=== PATIENT | male | born 1955 | race Caucasian/White ===

== ENCOUNTER 2016-09-08 02:59 | Inpatient (IN) | payer OTHER ==
--- NOTE | ~2016-09-08 | OR ---
Unit #: [id number] #: [id number] Patient: STEF BALLARD [id number] [address] [address] [id number] MR#: [id number] NAME: STEF BALLARD. ROOM: 568 Date of Procedure: 09/09/2016 Admission Date: 09/08/2016 Surgeon: Joseph Erickson M.D. : 1955 Attending Physician: Cal Flores M.D. Primary Care Physician: Alejandra Wu Aprn OPERATIVE REPORT PREOPERATIVE DIAGNOSES Possible upper gastrointestinal bleed. The patient has history of hepatitis C and melena. PROCEDURES PERFORMED Upper gastrointestinal endoscopy and biopsy. 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 Otherwise, examination was normal up to third part of duodenum. Specifically, no esophageal varices nor any changes of portal hypertensive gastropathy were seen. No specific area of potential gastrointestinal blood loss was noted in the entire upper gastrointestinal tract. RECOMMENDATIONS Consider colonoscopy as an outpatient. Also follow up the results of the biopsies taken today. SEDATION USED MAC. DESCRIPTION OF PROCEDURE Following detailed explanation of the potential risks and complications of an upper endoscopy, namely perforation, bleeding, and complication related to sedation, the patient was brought to GI lab and laid in the left lateral decubitus position. Lubricated tip of the Olympus video upper endoscope was passed through the bite block into the proximal esophagus under direct vision. 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 The Zabala segment was at least 2.5 to 3 cm in length. No esophagitis or stricture was present. The scope was then advanced into the gastric cavity and the latter was insufflated. Mucosa of the fundus, body, and antrum was examined and appeared unremarkable. Pylorus was intubated with visualization of the normal duodenal bulb and second and third part of the duodenum. Upon withdrawal and retroflexion, incisura, cardia, and greater curve was examined and no additional findings were noted. The scope was then withdrawn in the distal esophagus. Multiple biopsies were obtained from the Zabala segment and sent for histology. Entire esophageal mucosa was examined all the way up to pharynx. No additional findings were noted. The patient tolerated the procedure without any postprocedure complications. Unit #: [id number] #: [id number] Patient: STEF BALLARD Dictated by... Sam Johnson/prashanth TD: 09/10/2016 06:09 JOB #: [id number] CC: Kapil Colón M.D. OPERATIVE REPORT Page 1 of 1 X Joseph Erickson MD X PROCEDURE OPERATIVE NOTE
--- NOTE | ~2016-09-08 | CT4 ---
[facility] A Service of [facility] RADIOLOGY TEXT RESULTS PATIENT: STEF BALLARD LOCATION: [facility] 568-01 : 59 UNIT #: [id number] AGE: [address]: Fabián Ramirez MD SEX: M ORDER DR: [id number] [facility] [address] [facility]. [place], [place] [address] [id number] I MR#: [id number] Acc #: [id number] NAME: STEF BALLARD. : 1955 SEX: M STUDY DATE/TIME: 09/08/2016 4:38 UNIT: [facility] ROOM: 578 STUDY DESCRIPTION: CT Abd and Pelv Wo Cont Attending Physician: Fabián Back M.D. Referring Physician: Clara Self Referred Ordering Physician: Tom Guillaume Aprn Primary Care Physician: Alejandra Wu Aprn MEDICAL IMAGING REPORT This report is preliminary unless electronic signature is present EXAM Abdomen and pelvis CT, no contrast. INDICATION 61-year-old male with abdominal pain, bloating, nausea, vomiting, and diarrhea for 2 days. History of appendectomy. TECHNIQUE Noncontrast abdomen and pelvis CT was performed. This CT exam was performed with one or more of the following radiation dose reduction techniques: automatic exposure control, adjustment of mA and/or kV according to patient size, and iterative reconstruction. COMPARISON 11/14/[address] ABDOMEN: Exam markedly degraded by noncontrast technique. There is pleural thickening in the left lung base. Atelectasis in the right lower lobe. No effusion or pericardial effusion. Aorta demonstrates atherosclerotic change. No aneurysm. There is motion degradation. Spleen, adrenal glands, and pancreas and gallbladder unremarkable. Liver unremarkable. Kidneys demonstrate no hydronephrosis or radiopaque stone on either side. Ureters unremarkable. There is a benign cyst in the lower pole left kidney measuring about 4.[address] PELVIS: Bladder unremarkable. Prostate within normal limits. No drainable fluid collection in the pelvis. There is diverticulosis of the colon. No CT evidence of diverticulitis. Appendix surgically absent by history. Bowel demonstrates no inflammatory change or obstruction. Nonspecific fluid-filled small bowel loops in the left mid abdomen and STS. [facility] A Service of [facility] RADIOLOGY TEXT RESULTS PATIENT: STEF BALLARD LOCATION: [facility] 568-01 : 59 UNIT #: [id number] AGE: [address]: Fabián Ramirez MD SEX: M ORDER DR: upper quadrant. Inguinal canals are unremarkable. There are degenerative changes in the thoracolumbar spine. IMPRESSION 1. There are some fluid-filled loops of small bowel in the left midabdomen and left upper quadrant. This is nonspecific and may reflect a mild ileus. 2. The examination otherwise demonstrates no acute finding. No bowel obstruction, drainable fluid collection, or radiopaque stone associated with either kidney. Incidental cyst in the left kidney. 3. Diverticulosis. 4. Surgical absence of the appendix. Dictated by... Anthony Soto M.D. THIS IS AN ELECTRONICALLY VERIFIED REPORT Anthony Soto M.D. at 09/08/2016 9:57 PM Tunde TD: 09/08/2016 15:24 JOB #: [id number] MEDICAL IMAGING REPORT Page 1 of 1 COPY
--- NOTE | ~2016-09-08 | CO ---
Unit #: [id number] #: [id number] Patient: STEF CORONA [id number] [address] [place], [place] [address] [id number] Lisa MR#: [id number] NAME: STEF CORONA. ROOM: 568 Age: 61 Sex: M Admission Date: 09/08/2016 : 1955 Attending Physician: Cal Flores M.D. Primary Care Physician: Alejandra Wu Aprn Consultation Date: 09/09/2016 CONSULTATION REPORT PRIMARY CARE PHYSICIAN Alejandra Wu APRN. REASON FOR CONSULTATION Melena and abdominal pain. HISTORY OF PRESENT ILLNESS Mr. Corona is a 61-year-old white gentleman with a history of nausea, vomiting, diarrhea subsequently followed by melena and abdominal pain. I have been asked to assess for cause of possible upper GI bleed. In fact, the patient presented with low back pain and abdominal pain, which was fairly in the epigastric area and right upper quadrant of the abdomen. Subsequently, he also had some nausea, vomiting, and watery nonbloody diarrhea; later on, it became black and tarry. He was also feeling very weak and having some rigors. He apparently had a colonoscopy about a year ago that showed diverticulosis. PAST MEDICAL HISTORY Significant for history of hepatitis C, peripheral neuropathy, chronic back pain, degenerative disk disease, hypertension. PAST SURGICAL HISTORY Included cervical spinal surgery and appendectomy. HOME MEDICATIONS Include gabapentin, albuterol, lisinopril, meloxicam, Flexeril, omeprazole, hydrocodone, and acetaminophen. ALLERGIES He has no known drug allergies. FAMILY HISTORY Significant for premature heart disease in parents and uncles. SOCIAL HISTORY He lives at home with his . Smokes a pack of cigarettes a day and drinks a case of beer of 24 every other weekend. He also has used crack cocaine 3 days ago. He uses marijuana for a long time. REVIEW OF SYSTEMS Detailed review of organ systems does not reveal any recent weight loss. No history of fever, chills, or rigors. No history of headache, seizure, chest pain, or syncope. No history of cough, expectoration, or Unit #: [id number] #: [id number] Patient: STEF CORONA hemoptysis. No history of dysuria, hematuria, or pyuria. No history of focal seizures or extremity weakness. History of nausea, vomiting, diarrhea as mentioned above. There is also possibly a history of melena. PHYSICAL EXAMINATION GENERAL: He is alert and oriented, appears comfortable. VITAL SIGNS: Stable with a temperature of 98.6, pulse 93 per minute and regular, respiratory rate is 18, blood pressure is 116/53. He weighs 144 pounds. Baseline weight has been much more about 160 pounds in the past. HEENT: He has mild pallor. There being no icterus, lymphadenopathy, or peripheral edema. CARDIOVASCULAR: Normal heart sounds. No murmurs on auscultation. LUNGS: Reveal normal breath sounds. Good air entry. ABDOMEN: Soft and nontender. Liver and spleen are not palpable. Bowel sounds normal. DIAGNOSTIC STUDIES LABORATORY RESULTS: His hemoglobin of 12, baseline hemoglobin upon admission was 16. BUN and creatinine of 56 and 3.4. CLINICAL IMPRESSION The patient with upper gastrointestinal bleed, acute kidney injury, hepatitis C, anemia with gastrointestinal blood loss. MANAGEMENT PLAN An upper endoscopy will be performed later today. Based upon the results, we will let any further evaluation be made. The pros and cons of procedure, potential risks, and complications were discussed with the patient and he was reassured. Thank you for asking me to see this pleasant gentleman. I appreciate the consult. Dictated by... Sam Johnson/prashanth TD: 09/11/2016 01:05 JOB #: [id number] CC: Kapil Colón M.D. CONSULTATION REPORT Page 1 of 1 X Joseph Erickson MD CONSULTATION REPORT
--- NOTE | ~2016-09-08 | EKG ---
PATIENT: STEF BALLARD UNIT #: [id number] Ventricular Rate: 93 BPM Atrial Rate: 93 BPM P-R Interval: 148 ms QRS Duration: 80 ms Q-T Interval: 328 ms QTC Calculation(Bezet): 407 ms P [place]: 71 degrees Calculated R [place]: 59 degrees Calculated T [place]: 29 degrees Diagnosis Line: Normal sinus rhythm Diagnosis Line: Normal ECG Diagnosis Line: When compared with ECG of 13-NOV-2015 23:05, Diagnosis Line: No significant change was found Diagnosis Line: Confirmed by TRUPTI SINGH MD ([id number]) on 09/09/2016 Diagnosis Line: 10:58:14 PM INTERPRETING MD: SAMANTHA ROCK
--- NOTE | ~2016-09-08 | HP ---
Unit #: [id number] #: [id number] Patient: STEF CORONA [id number] [address] [address] [id number] I MR#: [id number] NAME: STEF CORONA. ROOM: 578 Age: 61 Sex: M Admission Date: 09/08/2016 : 1955 Attending Physician: Fabián Back M.D. Primary Care Physician: Alejandra Wu Aprn HISTORY AND PHYSICAL CHIEF COMPLAINT/REASON FOR ADMISSION Abdominal pain and blood in the stools. HISTORY OF PRESENT ILLNESS Mr. Corona is a 61-year-old male with a history of chronic low back pain and hepatitis C who presented to the emergency room because of one day of severe abdominal pain that he describes as a sharp pain in the epigastrium and left upper quadrant of severe intensity and nonradiating, associated with nausea and vomiting of approximately three to four times with subsequent dry heaving and also diarrhea that was initially clear and later became with what he describes as dark blood. He had approximately four episodes of diarrhea since yesterday evening. The patient denies any blood in the vomit. The patient's called EMS, and the patient was brought to the emergency room. By that time, the patient was feeling very weak and had shaking chills according to him. No fever. No sick contacts. The patient describes a similar episode a couple of times in the past with the latest one being in 2015 when the symptoms were related to diverticulosis and infectious gastroenteritis. The patient has followed with Dr. Hewitt in the outpatient setting but never underwent EGD even though this was planned. He did have a colonoscopy approximately one year ago that showed just diverticulosis. PAST MEDICAL HISTORY 1. Hepatitis C. 2. Peripheral neuropathy. 3. Chronic back pain. 4. Degenerative disk disease. 5. Hypertension. 6. Cervical spine surgery. 7. Patient states he had a colonoscopy last year. However, according to medical records, his last colonoscopy was in May 2009 and showed diverticulosis and two small polyps. 8. Appendectomy. CURRENT MEDICATIONS 1. Hydrocodone and acetaminophen 10 mg approximately 3 tablets daily. 2. Omeprazole 1 tablet p.o. daily. 3. Flexeril. 4. Meloxicam 15 mg daily. 5. Gabapentin 300 mg 3 times daily. 6. Albuterol inhaler p.r.n. 7. Lisinopril 10 mg daily. ALLERGIES Unit #: [id number] #: [id number] Patient: STEF CORONA No known drug allergies. FAMILY HISTORY Heart disease in his father and paternal uncles at age younger than 45. SOCIAL HISTORY The patient lives with his . He has three grown kids. He smokes approximately one pack a day. Denies drinking alcohol. Acknowledges using crack on occasion with last use approximately three days ago. He used cocaine and marijuana in the past but not for years now according to him. REVIEW OF SYSTEMS Significant for abdominal pain, nausea, vomiting, diarrhea, and blood in stools, as well as lightheadedness and chills as detailed in the History of Present Illness. Otherwise, a 12-point review of systems was negative. PHYSICAL EXAMINATION VITAL SIGNS: On arrival to emergency room: Temperature 97.3, heart rate 109, blood pressure 108/56, respiratory rate 20, and pulse oximetry 98% on room air. Most recent vital signs: Temperature of 98.1, heart rate 98, respiratory rate 20, and blood pressure 99/60. GENERAL APPEARANCE: He is a well-developed male who looks in some mild to moderate distress because of abdominal pain. HEENT: Pupils are equal and reactive to light and accommodation. Conjunctivae are pinkish. Moist mucous membranes. No oral lesions. NECK: Supple. No lymphadenopathy. CHEST: Clear to auscultation bilaterally. CARDIOVASCULAR: Regular rate and rhythm. No murmurs, rubs, or gallops. ABDOMEN: Bowel sounds are decreased throughout. There is tenderness to palpation with some guarding in the left upper quadrant and in the epigastric area. No rebound. EXTREMITIES: No edema. NEUROLOGIC: He is awake, alert, and oriented x3. Cranial nerves II-XII are grossly intact. DIAGNOSTIC STUDIES LABORATORY: WBC count 18.3, hemoglobin 16.2, and platelet count 354,000. Sodium 133, chloride 99, CO2 of 20, potassium 4.2, glucose 147, BUN 56, creatinine 3.4, and calcium 9.1. Liver panel is within normal limits except for a total bilirubin of 1.8 with direct of 0.2 and indirect of 1.6. Amylase and lipase are normal with lipase of 38 and amylase of 33. IMAGING: CT scan of the abdomen and pelvis without contrast showed dilated loops of small bowel in the left upper quadrant that is nonspecific but suggestive of ileus. No obstruction noted. Cyst noted in the left kidney. ASSESSMENT AND PLAN Mr. Corona is a 61-year-old male with a history of hepatitis C and chronic back pain with previous episodes of gastrointestinal bleed and diarrhea, now with another episode like this. 1. Nausea, vomiting, and abdominal pain. This is likely related to an acute enteritis. Etiology of this is not clear but is less likely to be infectious as the pattern seems to be recurrent. The patient also has some dysphagia and will likely need EGD. Will keep the patient n.p.o. and consult Gastroenterology. The patient has already received some IV fluids in the emergency room, and we will go ahead Unit #: [id number] #: [id number] Patient: STEF CORONA and rechallenge him with fluids again. Will obtain lactic acid. 2. Gastrointestinal bleed as above. It is unclear if the patient has bleeding from the upper or lower tract. There is inflammation noted in the small bowel loops in the left upper quadrant in an area that seems distal to the angle of [place]. He does describe dark stools but not melena. Will keep n.p.o., check a coagulation panel, and obtain stool studies. Will monitor his hemoglobin and hematocrit and transfuse if necessary for a hemoglobin threshold of less than 70 if there is no hemodynamic instability. 3. Acute kidney injury. In the past, his presentation was similar, and he responded to IV fluids. Will check urine studies including urine electrolytes and go ahead and challenge him with IV fluids generously. Will monitor his creatinine in the morning. At this time, his platelet count is normal. His hemoglobin is as well. No concern at this time about thrombotic microangiopathy. 4. History of substance abuse. Will obtain a urine drug screen. 5. Tobacco abuse. Counseled to quit. 6. Deep venous thrombosis prophylaxis. Will keep him on sequential compression devices. 7. Will manage the patient's symptoms with morphine and Zofran. The patient has been started on a Protonix drip in the emergency room. Will continue this until Gastroenterology evaluates the patient. 1. Dictated by Sam Us TD: 09/08/2016 17:20 JOB #: [id number] HISTORY AND PHYSICAL Page 1 of 1 X X HISTORY AND PHYSICAL
[~2016-09-08 02:59] MED LIST: FLAGYL PO; FLEXERIL10 MG PO; FOLIC ACID PO; GABAPENTIN300 M2 PO; HYDROCODON-ACE1 EAC5 PO; KEFLEX PO; LEVAQUIN PO; LISINOPRIL10 MG PO; LORCET PLUS TAB1 TA1; LORTAB 7.5-5001 TAB PO; MELOXICAM15 MG PO; NICOTINE T1 PATCH .2 TOP; NORCO 5/325 TAB1 TAB PO; OMEPRAZOLE20 M2 PO; PROTONIX PO; THIAMINE HCL100 MG PO
[2016-09-08 03:03] LABS: BASOPHIL% 0.1 % (0-2.5); DIFF IND YES; EOSINOPHIL# 0.1 X10e3 (0-0.7); EOSINOPHIL% 0.8 % (0.0-7.0); HEMOGLOBIN 16.2 gm/dL (13.0-16.0); LYMPHOCYTE# 0.5 X10e3 (1.0-3.5); LYMPHOCYTE% 2.5 % (17.0-45.0); MEAN CELL VOLUME 90.9 FL (83-96); MEAN PLATELET VOLUME 7.7 FL (6.5-11.5); MONOCYTE# 1.2 X10e3 (0-1.0); MONOCYTE% 6.8 % (3.0-12.0); NEUTROPHIL# 16.4 X10e3 (1.5-7.1); NEUTROPHIL% 89.8 % (40-75); PLATELET COUNT 354 X10e3 (140-420); RED BLOOD COUNT 5.39 X10e (3.90-5.60); RED CELL DISTRIBUTION WIDTH 13.5 % (11.0-15.5); WHITE BLOOD COUNT 18.3 X10e3 (4.0-10.5)
[2016-09-08] MEDS ORDERED: HYDROCODONE-APA1 T54 PO (03:24)
[2016-09-08 03:40] LABS: PLATELET ESTIMATE INCREASED (NORMAL)
[2016-09-08 03:41] LABS: ANISOCYTOSIS SL
[2016-09-08 03:50] LABS: ALBUMIN SERUM 4.7 g/dL (3.5-5.0); BILIRUBIN, DIRECT 0.2 mg/dL (0.0-0.2); BILIRUBIN,INDIRECT 1.6 mg/dL (0.0-0.9); BILIRUBIN,TOTAL 1.8 mg/dL (0.2-2.0); BUN/CREATININE RATIO 16.47; CALCIUM SERUM 9.1 mg/dL (8.4-10.2); CREATININE SERUM 3.4 mg/dL (0.6-1.4); GLOM FILT RATE Estimated 18.7 mL/min (>60); POTASSIUM 4.2 mmol/L (3.5-5.1); PROTEIN TOTAL SERUM 8.2 g/dL (6.0-8.3)
[2016-09-08 10:25] LABS: HEMATOCRIT 45.6 % (38.0-50.0)
[2016-09-08 11:46] LABS: PARTIAL THROMBOPLASTIN TIME 27.3 SECONDS (23.5-31.3); PROTHROMBIN TIME (PATIENT) 10.8 SECONDS (9.6-11.5)
[2016-09-08 14:53] LABS: HEMATOCRIT 43.4 % (38.0-50.0); HEMOGLOBIN 14.1 gm/dL (13.0-16.0)
[2016-09-08 22:32] LABS: HEMATOCRIT 37.3 % (38.0-50.0); HEMOGLOBIN 12.4 gm/dL (13.0-16.0)
[2016-09-09 03:27] LABS: URINE APPEARANCE CLEAR; URINE BILIRUBIN NEG (NEG); URINE BLOOD NEG (NEG); URINE COLOR YELLOW; URINE GLUCOSE NEG (NEG); URINE KETONE NEG (NEG); URINE LEUKOCYTE ESTERASE NEG (NEG); URINE NITRATE NEG (NEG); URINE PH 5.5 (5-8); URINE PROTEIN NEG (NEG); URINE SPECIFIC GRAVITY 1.019 (1.003-1.035); URINE UROBILINOGEN 0.2 MG/DL (NEG)
[2016-09-09 03:59] LABS: AMPHETAMINE POS (NEG); BARBITURATES NEG (NEG); BENZODIAZEPINES NEG (NEG); COCAINE NEG (NEG); MARIJUANA NEG (NEG); OPIATES POS (NEG); TRICYCLIC ANTIDEPRESSANTS POS (NEG); U METHADONE NEG (NEG)
[2016-09-09 04:00] LABS: CREATININE,RANDOM URINE 108 mg/dL; POTASSIUM,URINE RANDOM 25 mmol/L; SODIUM URINE RANDOM 87 mmol/L; TOTAL PROTEIN,RANDOM URINE 17 mg/dl (<10)
[2016-09-09 04:26] LABS: OSMOLALITY,URINE 612 mOsmo/kg (250-900)
[2016-09-09 08:26] LABS: HEMATOCRIT 37.7 % (38.0-50.0); HEMOGLOBIN 12.6 gm/dL (13.0-16.0); MEAN CELL VOLUME 90.8 FL (83-96); MEAN CORPUSCULAR HEMOGLOBIN 30.3 PG (28-34); MEAN CORPUSCULAR HGB CONC 33.3 g/dL (30-36); RED BLOOD COUNT 4.15 X10e (3.90-5.60); RED CELL DISTRIBUTION WIDTH 13.7 % (11.0-15.5); WHITE BLOOD COUNT 9.2 X10e3 (4.0-10.5)
[2016-09-09 08:48] LABS: ALBUMIN SERUM 3.3 g/dL (3.5-5.0); BUN/CREATININE RATIO 32.85; CALCIUM SERUM 8.5 mg/dL (8.4-10.2); CREATININE SERUM 1.4 mg/dL (0.6-1.4); GLOM FILT RATE Estimated 54.6 mL/min (>60); MAGNESIUM 1.9 mg/dL (1.6-3.0); PHOSPHOROUS 2.5 mg/dL (2.5-4.6); PROTEIN TOTAL SERUM 6.2 g/dL (6.0-8.3)
[2016-09-09 14:04] LABS: HEMATOCRIT 39.6 % (38.0-50.0); HEMOGLOBIN 12.9 gm/dL (13.0-16.0); MEAN CELL VOLUME 91.1 FL (83-96); MEAN CORPUSCULAR HEMOGLOBIN 29.7 PG (28-34); MEAN CORPUSCULAR HGB CONC 32.6 g/dL (30-36); MEAN PLATELET VOLUME 8.1 FL (6.5-11.5); RED BLOOD COUNT 4.34 X10e (3.90-5.60); RED CELL DISTRIBUTION WIDTH 13.8 % (11.0-15.5); WHITE BLOOD COUNT 8.4 X10e3 (4.0-10.5)
[2016-09-09] MEDS ORDERED: NICOTINE P1 PATCH .2 (18:12)
== END 2016-09-09 20:16 | disposition home or self-care (01) | DRG 378 ==
LOC: CED 02:59 → CEDOF 05:50 → C5C 08:11
PROVIDERS: Internal Medicine; Internal Medicine Gastroenterology; Nurse Practitioner Family
PROC: 0DB68ZX Excision of Stomach, Via Natural or Artificial Opening Endoscopic, Diagnostic (ICD-10-PCS; principal; 2016-09-09 09:50)
DX: K92.1 Melena (principal); N17.9 Acute kidney failure, unspecified; G62.9 Polyneuropathy, unspecified; D62 Acute posthemorrhagic anemia; B19.20 Unspecified viral hepatitis C without hepatic coma; K22.70 Barrett's esophagus without dysplasia; M54.9 Dorsalgia, unspecified; G89.29 Other chronic pain; I10 Essential (primary) hypertension; F17.210 Nicotine dependence, cigarettes, uncomplicated; F19.10 Other psychoactive substance abuse, uncomplicated
CPT/HCPCS: 36415; 74176; 80048; 80053; 80076; 80307; 81003; 82150; 82310; 82436; 82570; 83605; 83690; 83735; 83930; 83935; 84100; 84133; 84156; 84300; 85014; 85018; 85025; 85027; 85610; 85730; 87086; 88305; 93005; 96365; 96366; 96374; 96375; 99285; C9113; J1170; J2405

== ENCOUNTER → 2017-02-28 | Day surgery (SDC) | payer OTHER ==
[~2017-02-28] MED LIST changes: +HYDROCODONE-APA1 T54 PO; +NICOTINE P1 PATCH .2
--- NOTE | ~2017-02-28 | OR ---
Unit #: [id number] #: [id number] Patient: STEF BALLARD [id number] [address] [address] [id number] MR#: [id number] NAME: STEF BALLARD. ROOM: Date of Procedure: 02/28/2017 Admission Date: 02/28/2017 Surgeon: Joseph Erickson M.D. : 1955 Attending Physician: Joseph Erickson M.D. Primary Care Physician: Alejandra Wu Aprn OPERATIVE REPORT PRIMARY CARE PHYSICIAN Alejandra Wu APRN. PREOPERATIVE DIAGNOSES The patient presented for surveillance colonoscopy. He has personal history of colon polyps. PROCEDURES PERFORMED Colonoscopy and biopsy. POSTOPERATIVE DIAGNOSES 1. Single diminutive polyp in the sigmoid colon removed using cold biopsy forceps. 2. Sigmoid and descending colon diverticulosis. 3. Rest of the examination up to cecum was normal. The quality of the prep was good. RECOMMENDATIONS 1. Follow up the results of polyp histology. 2. Consider repeat colonoscopy in 5 years. SEDATION USED MAC. DESCRIPTION OF PROCEDURE Following detailed explanation of the potential risks and complications of a colonoscopy, namely perforation, bleeding, and complications related to sedation, the patient was brought to GI lab and laid in the left lateral decubitus position. A digital rectal examination was performed. The latter revealed presence of perianal skin tags. A lubricated tip of the Olympus video colonoscope was inserted through the anus and advanced under direct vision. The scope was advanced past rectosigmoid into descending colon. Multiple medium-sized diverticula were seen in this area. The scope tip was then navigated all the way up to cecum with visualization of the ileocecal valve and the appendiceal orifice. Preparation was good with good visualization and photodocumentation was obtained. Successive segments of the colonic mucosa were examined upon withdrawal. A single diminutive sessile polyp was noted in the mid sigmoid colon. This was removed using cold biopsy forceps. No additional polyps were seen. Other than the left-sided diverticula, no other abnormalities were found. The scope was then withdrawn and the patient returned to the recovery area. He tolerated the procedure without any postprocedure complications. Unit #: [id number] #: [id number] Patient: STEF BALLARD Dictated by... Sam Johnson TD: 02/28/2017 11:10 JOB #: [id number] OPERATIVE REPORT Page 1 of 1 X Joseph Erickson MD X PROCEDURE OPERATIVE NOTE
== END | disposition home or self-care (01) ==
LOC: COPS 07:39
DX: Z12.11 Encounter for screening for malignant neoplasm of colon (principal); K63.5 Polyp of colon; K57.30 Diverticulosis of large intestine without perforation or abscess without bleeding; J44.9 Chronic obstructive pulmonary disease, unspecified; F17.210 Nicotine dependence, cigarettes, uncomplicated; Z86.010 Personal history of colon polyps; Z79.899 Other long term (current) drug therapy; Z98.890 Other specified postprocedural states
CPT/HCPCS: 88305